=== PATIENT | female | born 2000 | race African-American/Black ===

== ENCOUNTER 2022-05-19 01:58 | Emergency (ER) | payer OTHER, MEDICAID ==
[~2022-05-19] VITALS: Ht 154.9 cm; Wt 75.0 kg
[2022-05-19 02:00] VITALS: BP 178/98
[2022-05-19] MEDS ORDERED: AMLO2.5T45 MT (03:41)
== END 2022-05-19 04:27 ==
LOC: ER 02:04
DX: I10 Essential (primary) hypertension (principal); Z65.3 Problems related to other legal circumstances
CPT/HCPCS: 99283

== ENCOUNTER 2022-09-14 00:31 | Emergency (ER) | payer OTHER, MEDICAID ==
[~2022-09-14] VITALS: Ht 154.9 cm; Wt 77.0 kg
[~2022-09-14 00:31] MED LIST: AMLO2.5T45 MT
[2022-09-14 00:32] VITALS: BP 143/92
[2022-09-14] MEDS ORDERED: HALO2TAB2 MT (01:03)
== END 2022-09-14 01:19 | disposition home or self-care (01) ==
LOC: ER 00:56
DX: Z76.0 Encounter for issue of repeat prescription (principal); Z86.59 Personal history of other mental and behavioral disorders; I10 Essential (primary) hypertension
CPT/HCPCS: 99283

== ENCOUNTER 2022-10-30 10:16 | Emergency (ER) | payer OTHER, MEDICAID ==
[~2022-10-30] VITALS: Ht 154.9 cm; Wt 77.0 kg
[~2022-10-30 10:16] MED LIST changes: +HALO2TAB2 MT
[2022-10-30 10:25] VITALS: BP 120/78
== END 2022-10-30 12:47 | disposition home or self-care (01) ==
LOC: ER 10:16
DX: F23 Brief psychotic disorder (principal); Z59.00 Homelessness unspecified; I10 Essential (primary) hypertension
CPT/HCPCS: 99283

== ENCOUNTER 2022-11-14 19:09 | Emergency (ER) | payer OTHER ==
[~2022-11-14] VITALS: Ht 165.1 cm; Wt 82.0 kg
[2022-11-14 19:19] VITALS: BP 162/106
== END 2022-11-15 01:39 | disposition left against medical advice (07) ==
LOC: ER 19:09
DX: Z53.21 Procedure and treatment not carried out due to patient leaving prior to being seen by health care provider (principal)
CPT/HCPCS: 99281

== ENCOUNTER 2022-11-15 01:32 | Emergency (ER) | payer OTHER ==
[~2022-11-15] VITALS: Ht 162.6 cm; Wt 70.0 kg
[2022-11-15 01:35] VITALS: BP 132/82
== END 2022-11-15 09:55 | disposition left against medical advice (07) ==
LOC: ER 02:17
DX: Z53.21 Procedure and treatment not carried out due to patient leaving prior to being seen by health care provider (principal)
CPT/HCPCS: 99281